=== PATIENT | male | born 1990 | race Caucasian/White ===

== ENCOUNTER 2022-03-04 15:24 | Emergency (ER) | payer MEDICAID, SELFPAY ==
[2022-03-04 15:32] VITALS: BP 126/92; PULSE 90; RESP 14; TEMP 36.6; O2SAT 99; BMI 17.6
[2022-03-04 17:00] VITALS: BP 126/42; PULSE 90; RESP 16; O2SAT 95
--- NOTE | 2022-03-04 17:34 | XRR_ITS ---
PROCEDURE INFORMATION: Exam: XR Left Shoulder Exam date and time: 03/04/2022 5:38 PM Age: 31 years old Clinical indication: Pain; Shoulder; Left TECHNIQUE: Imaging protocol: Radiologic exam of the Left shoulder. Views: 2 or more views. COMPARISON: No relevant prior studies available. FINDINGS: Bones/joints: Normal. Soft tissues: Normal. XR/XR shoulder LT min 2V* [id number] IMPRESSION: No acute findings.
--- NOTE | 2022-03-04 17:35 | ED_ITS ---
HPI - Extremity Injury (Upper) General: Chief Complaint: Extremity Problem,Nontraumatic Stated Complaint: Left Shoulder injury Time Seen by Provider: 03/04/22 16:50 Source: patient Mode of arrival: ambulatory Limitations: no limitations History of Present Illness: Patient is a 31-year-old male who presents to ED today with a complaint of left shoulder pain. Tells me a week ago he rolled over in the middle of the night and dislocated his left shoulder. He states this is the third time his shoulder has dislocated. He states he was taught a technique by his chiropractor to place my elbow to my bellybutton and turned my arm outward . He states he did feel a clunk when it reduced but he is concerned because he continues to have pain. MD complaint: injury to: left and shoulder Onset (ago): day(s) Other injuries: none Place: home Severity: moderate Relieving factors: none Exacerbating factors: movement of extremity Associated symptoms: Reports no associated symptoms; Denies neck pain Review of Systems Const: Denies: fever(s), chills, body aches, fatigue or malaise Card: Denies: chest pain Resp: Denies: dyspnea GI: Denies: abdominal pain Musc: Reports: joint pain (L shoulder) and limited range of motion; Denies: neck pain, back pain, extremity pain, extremity swelling, joint redness or joint warmth Neuro: Denies: headache(s), numbness in extremities or sensory changes Physical Exam Const: COMMON NORMALS: no acute distress, average body habitus, patient oriented x3, no limitations, healthy appearing, alert and well nourished GENERAL APPEARANCE: cooperative ORIENTATION/CONSCIOUSNESS: Yes awake, Yes oriented to person, Yes oriented to place and Yes oriented to time Extremity: COMMON NORMALS: capillary refill normal and no joint enlargement GENERAL: Yes normal exam except as noted LEFT UPPER EXTREMITY: Yes shoulder joint Left shoulder joint: Yes inspection (normal), Yes ROM (full but hesitant to range of motion) and Yes neurovascular exam (normal) Neuro: COMMON NORMALS: patient oriented x3 SENSORIUM/ORIENTATION: Yes alert, Yes oriented to person, Yes oriented to place and Yes oriented to time Course Vital Signs: Vital signs: Vital Signs Temperature 97.8 F 03/04/22 15:32 Pulse Rate 90 03/04/22 17:00 Respiratory Rate 16 03/04/22 17:00 Blood Pressure 126/42 03/04/22 17:00 Pulse Oximetry 95 03/04/22 17:00 Oxygen Delivery Me thod 03/04/22 17:00 MDM - Extremity Injury (Upper) Medical Decision Making XR shows no dislocation of his L shoulder however he does continue to have pain. He has a history of multiple previous shoulder dislocations. I think he would benefit from orthopedic follow up consultation/evaluation/treatment. CM referral was made for this. Discharge Plan Discharge Patient Disposition: Home Clinical Impression: Hx of dislocation of shoulder Left shoulder pain Qualifiers: Chronicity: acute Qualified Code(s): M25.512 - Pain in left shoulder Condition: Stable Prescriptions: New diclofenac sodium 50 mg tablet,delayed release (DR/EC) 50 mg PO Q12H PRN (Reason: pain) Qty: 20 0RF Discharge Orders: Discharge ED (Routine); Ordered 03/04/22 Ordered By: Loly Oakley Activity Restrictions/Additional Instructions: As we discussed case management should contact you shortly to set you up with your follow-up orthopedic appointment. Coding Level of Care Code ED [employer]ing [employer] Operator for Geno Fwluis Exam Expanded Problem Focused
--- NOTE | 2022-03-06 13:33 | DCPLANNER ---
Addendum entered by Aria Augustin 03/07/22 13:38: e business project manager received the following message from the ortho clinic regarding follow up appointment: left vm/Mailed letter to pt to schedule with CALEB Ornelas Original Note: e business project manager had message to schedule a follow up appointment for patient with ortho. e business project manager sent patients information to the front office staff at ortho. Patients information will be printed and reviewed. Clinic will call patient with appointment information.
== END 2022-03-04 18:37 | disposition home or self-care (01) ==
PROVIDERS: Emergency Provider Physician Assistant
DX: M25.512 Pain in left shoulder (principal); Z87.828 Personal history of other (healed) physical injury and trauma
CPT/HCPCS: 73030; 99283

== ENCOUNTER → 2022-06-28 10:20 | Outpatient (BNVA) | payer BC, MEDICAID, SELFPAY | PROVIDERS: Referring Provider Physician Assistant; Visit Provider Nurse Practitioner Family | DX: M24.412 Recurrent dislocation, left shoulder (principal) | CPT/HCPCS: 73030; 99204 ==

== ENCOUNTER 2022-09-04 11:17 | Outpatient (CLI) | payer BC, MEDICAID, SELFPAY ==
--- NOTE | 2022-09-04 11:45 | IR_ITS ---
WS: [id number] LEFT SHOULDER ARTHROGRAM UNDER FLUOROSCOPY. PRIOR TO MRI EVALUATION. HISTORY: shoulder pain COMPARISON: None available. FLUOROSCOPY TIME: 0min [id number] # of spot films: 1 Procedure, risks and complications were explained to the patient. Consent has been obtained. Under fluoroscopic guidance the skin is marked over the medial superior third of the humeral head, cl eansed with ChloraPrep and anesthetized with lidocaine. 22-gauge spinal needle is inserted to the cor joycelyn of the humeral head. Test injection with Omnipaque reveals the needle is appropriately positioned in the joint. A mixture of 10 cc sterile saline, 5 cc Omnipaque and 0.1 mmol gadolinium are injected under fluoroscopic guidance. Patient tolerated the joint distention well. No complications. IR/IR arthrogram shoulderLT [id number] IMPRESSION: Uncomplicated LEFT shoulder joint injection prior to MRI.
[2022-09-04] MEDS: gadobenate dimeglumine 20 mL vial IV (12:55)
[2022-09-04] MEDS: iohexol 240 mg/mL 50 mL Btl INTRA-ARTI (12:56)
--- NOTE | 2022-09-04 13:00 | MR_ITS ---
WS: [id number] MRI LEFT SHOULDER ARTHROGRAM HISTORY: Fell 1 year ago. LEFT shoulder pain. COMPARISON: LEFT shoulder radiograph 06/28/2022 TECHNIQUE: Pre and postcontrast imaging. Gadolinium mixture was injected under fluoroscopy. Coronal T 1 fat sat, sagittal T2 fat sat, coronal T2 fat sat, axial proton density, axial T1 nonfat saturation and ABER sagittal T1 fat sat views are submitted. Normal AC joint. No os acromion. Normal position of the biceps tendon. No rotator cuff tear. Muscles are normal size and signal. No joint effusions. Posterior lateral depression along the humeral head above the coracoid measures 2.5 x 0.8 cm consiste nt with a Hill-Sachs deformity. No additional fractures or marrow edema. On the postcontrast imaging there is fraying and contrast extending into the base of the anterior sup erior labrum. Consistent with an anterior superior labral tear. A portion of the anterior labrum is a vulsed from the glenoid. The labral tear extends close to the origin of the biceps tendon but does no t extend into the biceps tendon. Middle glenohumeral ligament is lax. MR/MR shoulder LT wo/w con [id number] IMPRESSION: 1. Hill-Sachs deformity along the posterior superior humeral head. 2. Anterior superior labral tear is partially avulsed from the glenoid. 3. No rotator cuff tear.
== END 2022-09-04 11:18 | disposition home or self-care (01) ==
LOC: RAD 11:21
PROVIDERS: Visit Provider Nurse Practitioner Family
DX: M24.412 Recurrent dislocation, left shoulder (principal)
CPT/HCPCS: 23350; 73223; 77002; A9577; Q9966

== ENCOUNTER 2022-10-03 06:46 | Day surgery (SDC) | payer BC, MEDICAID, SELFPAY ==
[2022-10-02 13:46] VITALS: BMI 18.3
[2022-10-03] VITALS (10 sets, daily range): BP systolic 109–141; BP diastolic 67–90; PULSE 59–101; RESP 12–18; TEMP 36.1–36.7; O2SAT 96–100
--- NOTE | 2022-10-03 07:20 | ANES.PREANE2 ---
Pre-Anesthetic Assessment Height/Weight: Height 1.83 m Weight 61.235 kg Temp Pulse Resp BP Pulse Ox O2 Del Method 98.0 F 101 H 18 115/74 99 10/03/22 06:59 10/03/22 06:59 10/03/22 06:59 10/03/22 06:59 10/03/22 06:59 10/03/22 07:07 Preop Diagnosis: Bankart lesion, Hill-Sachs lesion left shoulder Operation Date: 10/03/22 08:20 Proposed Procedures p arthroscopic bankart lesion repair and other indicated procedures left shoulder/ [id number](Left) - Rajinder Castellanos MD s Bankart Lesion Repair(Left) - Rajinder Castellanos MD Familial anesthetic complications: None Was Beta Leobardo taken within 24 hours: N/A Was Clonidine taken within 24 hours: N/A Last intake: Intake Last Liquid Date 10/02/22 Last Liquid Time 18:00 Last Solid Date 10/03/22 Last Solid Time 18:00 Social No alcohol and No tobacco Vapes Exam alert, oriented x 3, clear to auscultation bilaterally and regular rate & rhythm Airway Mallampati: Class I Dentition: chipped History/ROS No significant complaints Anesthetic Plan ASA status: 1 Anesthesia: General and Regional (specify below) Risk of > 500 ml blood loss (7ml/kg in children): No Medications/Allergies Home Medications Medication Instructions Recorded Confirmed Last Taken Type tramadol 50 mg tablet 50 mg PO Q6H PRN pain #20 tabs 09/27/22 10/02/22 10/02/22 Rx Allergies Allergy/AdvReac Type Severity Reaction Status Date / Time No Known Allergies Allergy Verified 09/27/22 11:19 Data Anesthesia Cardiac Studies: No Data to Display
[2022-10-03] MEDS: oxyCODONE 20 mg ER (12 HR) Tablet PO (07:21)
[2022-10-03] MEDS: CELEcoxib 200 mg Capsule 400 MG PO (07:21)
[2022-10-03] MEDS: acetaminophen 500 mg Tablet 1000 MG PO (07:21)
[2022-10-03] MEDS: gabapentin 300 mg Capsule PO (07:21)
[2022-10-03] MEDS: sodium chloride 0.9% 1,000 ML 30 ML IV (07:39)
--- NOTE | 2022-10-03 07:41 | ANES.PROC ---
Anesthesia Procedures Procedure/Date: 10/03/22 Nerve Block ^: Nerve Block 1: Main Anesthesia: general anesthesia Time Out Performed: Yes Consent: requested by attending/covering physician, from patient, risks and benefits reviewed and patient agrees to proceed Nerve block location: interscalene (L) Anesthesia monitors applied: pulse oximetry, EKG, BP cuff and oxygen Nerve block position: semi sitting Anesthetic Used: ropivicaine 0.5% (20 ml) and with decadron (4 mg) Ultrasound used to: recognize landmarks, visualize and ID brachial plexus, in supraclavicular region and visualize and ID interscalene groove Nerve Stimulator Used?: No Interscalene/Femoral BLK: 2 stimuplex 22 g needle used for position and inplane approach, visualize local anesthetic spread and no vascular puncture identified Injection: neg aspiration of heme Patient Tolerated Procedure: well Complications: none
--- NOTE | 2022-10-03 07:57 | P.HPUD_ITS ---
Surgery/Procedure H&P Update DATE OF PROCEDURE: October 03, 2022 DATE H&P PERFORMED: 09/18/22 H&P UPDATE INFORMATION: I have reviewed H&P completed within last 30 days PREOP DIAGNOSIS: Bankart lesion, Hill-Sachs lesion left shoulder PLANNED PROCEDURE: Operation Date: 10/03/22 08:20 Proposed Procedures p arthroscopic bankart lesion repair and other indicated [place] [facility]/ [id number](Left) - Rajinder Castellanos MD s Bankart Lesion Repair(Left) - Rajinder Castellanos MD
[2022-10-03] MEDS: ceFAZolin 2,000 MG in sodium chloride 0.9% (plus) 50 ML 100 MG IV (08:15)
--- NOTE | 2022-10-03 10:38 | P.OP_ITS ---
Operative Report Date of procedure: October 03, 2022 Pre-op diagnosis: Preop Diagnosis Bankart lesion, Hill-Sachs lesion left shoulder Post-op diagnosis: same Post-op diagnosis: Bankart lesion, Hill-Sachs lesion, loose body left shoulder Procedure done: Arthroscopic Bankart repair left shoulder Removal of loose body left shoulder Implants: [employer] Q fix 2.8 mm anchors x 4 Pathology: none sent Surgeon: Rajinder Castellanos Anesthesia: General and Nerve Block (Interscalene block) Estimated blood loss (mL): 10 Complications: None Findings: Examining the patient understands anesthesia he had clear anterior instability with his shoulder dislocated anteriorly in the abducted and externally rotated position. Intraoperatively he had a large Bankart lesion extending from approximately the 2 o'clock position to the 6 o'clock position chronic scarred medialized labral tissue attachment. He had a large loose body. A large Hill- Sachs lesion was identified posteriorly Condition: stable Disposition: PACU Brief History: Renny is a 31-year-old male with recurrent instability of the right shoulder. MRI revealed a large Bankart lesion in addition to a Hill-Sachs lesion of the humeral head. He previously failed physical therapy. Surgical stabilization was chosen to maintain stability of the shoulder and improve function Procedure: Renny was given interscalene block in holding. He was taken the operating room and given a general anesthesia. He was placed in the lateral position with his left arm in 15 pounds of traction. A timeout was performed. A posterior portal was made 2 cm inferior and medial to the posterior corner of the acromion. A scope cannula and trocar were driven into the glenohumeral joint anterior working portal was opened up with a scalpel blade. Initially a large loose body was identified in the superior shoulder. A grasper was passed through the anterior portal with the cannula removed and a loose body removed approximately 12 x 8 mm in diameter. The labrum was probed. He had a very medialized attachment from the 2:00 to 6 o'clock position. His humeral head was subluxed anteriorly glenoid. He had no glenoid bone loss. A large Hill-Sachs lesion was identified in the posterior humeral head initially engaged with the shoulder sub luxed anteriorly and abduction and external rotation of the arm. Attention was then focused on the anterior labrum. Utilizing an incisor shaver the anterior rim of the glenoid was lightly debrided. The [employer] Werewolf cautery was then used to mobilize the medial attachment of the anterior capsule from the anterior edge of the glenoid. A 2.8 mm Q fix anchor was then passed with the guide percutaneously into approximately the 7 o'clock position. An Acupass passer was used to pass a loop of shuttling suture through the labrum at the 6:30 position grasping approximately 1 cm anterior inferior labrum. Through the working portal 1 limb of suture from the placed anchor was passed through the loop and the suture was then shuttled through the anterior labrum. The remaining suture was then brought through the cannula and secured drawing the anterior inferior labrum up to the glenoid. This was repeated again at the 8 o'clock position . 9 o'clock position and 10:30 position with sutures shuttled again through the anterior labrum at each level, securing the labrum to the anterior glenoid. At the conclusion of the procedure the shoulder is concentrically located beneath the glenoid. The arm was brought up into a abducted externally rotated position without digitalization or engagement of the Hill-Sachs lesions. The shoulder was irrigated with saline. Portals were closed with 3-0 Prolene. Sterile dressings were applied. The patient is placed in abduction pillow, extubated, and taken to cover room in stable condition
--- NOTE | 2022-10-03 10:45 | PC.NURSE ---
pt arrived to PACU at 1042, oral airway removed by anesthesia at this time, tolerated well. O2 at 6L/min via simple mask in place. Dressing to left shoulder C/D/I, fingers on left hand p/w/d, cap refill < 3 seconds, good radial pulse noted. HOB elevated.
--- NOTE | 2022-10-03 14:08 | ANE.PACU2 ---
Inpatient post-anesthesia follow up: Airway intact: Yes Vital signs: Temperature 97.1 F Pulse Rate 70 Respiratory Rate 18 Blood Pressure 136/72 Pulse Oximetry 100 Oxygen Delivery Me thod Room Air Oxygen Flow Rate 6 Fraction of Inspir ed Oxygen Hydration adequate: Yes Nausea and vomiting: No Pain level: 1 Mental status: Baseline
== END 2022-10-03 12:00 | disposition home or self-care (01) ==
PROVIDERS: Visit Provider Orthopaedic Surgery
PROC: (CPT 29805; principal; 2022-10-03 08:10)
PROC: (CPT 29806; 2022-10-03 08:10)
DX: S43.432A Superior glenoid labrum lesion of left shoulder, initial encounter (principal); M24.012 Loose body in left shoulder; X50.0XXA Overexertion from strenuous movement or load, initial encounter; Y93.55 Activity, bike riding
CPT/HCPCS: 29806; C1713; J0690; J1100; J1885; J2250; J2405; J2704; J2710; J2795; J3010; J3490; J7030